=== PATIENT | male | born 1960 | race Caucasian/White ===

== ENCOUNTER → 2018-08-05 | Outpatient (CLI) | payer OTHER ==
[~2018-08-05] MED LIST: AMLO10TA8 PO; FISH OIL PO; LISI-170 PO; MAGNESIUM PO; RIVA20TA PO; SOTA80TA PO; VITAMIN D PO
== END | disposition home or self-care (01) ==
LOC: CFH 14:18
PROVIDERS: ATTEND Internal Medicine Cardiovascular Disease
DX: I08.3 Combined rheumatic disorders of mitral, aortic and tricuspid valves (principal); I48.1 Persistent atrial fibrillation; I10 Essential (primary) hypertension
CPT/HCPCS: 93306

== ENCOUNTER → 2018-09-09 | Outpatient (CLI) | payer OTHER ==
[~2018-09-09] MED LIST changes: +REGADENOSON 0.4 MG/5 ML SYRINGE ONE
== END | disposition home or self-care (01) ==
LOC: CFH 11:54
PROVIDERS: ATTEND Nurse Practitioner Family
DX: I21.19 ST elevation (STEMI) myocardial infarction involving other coronary artery of inferior wall (principal); I48.1 Persistent atrial fibrillation
CPT/HCPCS: 78452; 93017; A9502; J2785

== ENCOUNTER 2018-09-25 11:02 | Inpatient (IN) | payer OTHER ==
[~2018-09-25] VITALS: Ht 190.5 cm; Wt 96.9 kg
[~2018-09-25 11:02] MED LIST changes: -REGADENOSON 0.4 MG/5 ML SYRINGE ONE
[2018-09-25] MEDS ORDERED: DILTIAZEM 5 MG/ML, 5ML IVPush ONE (11:18)
[2018-09-25] MEDS ORDERED: SODIUM CHLORIDE FLUSH 10ML SYR IVF ONE (11:30)
[2018-09-25] MEDS ORDERED: SODIUM CHLORIDE 0.9% 1,000ML IVBOLUS ONE (11:30)
[2018-09-25] MEDS ORDERED: DILTIAZEM 5 MG/ML, 10ML ONE (11:43)
[2018-09-25] MEDS ORDERED: FURO-93 PO (11:52)
[2018-09-25] MEDS ORDERED: AMIO200T42 PO (11:52)
[2018-09-25] MEDS ORDERED: AMLO-150 PO (11:52)
[2018-09-25] MEDS ORDERED: METO25TA35 PO (11:52)
[2018-09-25 11:55] LABS: MEAN CORPUSCULAR HEMOGLOBIN 29.5 pg (27.5-34.5); MEAN CORPUSCULAR HGB CONC 32.9 g/dL (33.2-36.2); MEAN CORPUSCULAR VOLUME 89.7 fL (81-97); MEAN PLATELET VOLUME 8.2 fL (7.4-10.4); PLATELET COUNT 274 x10^3/uL (130-400); RED BLOOD COUNT 5.68 x10^6/uL (4.38-5.82); RED CELL DISTRIBUTION WIDTH 16.4 % (9.4-14.8)
[2018-09-25] MEDS ORDERED: TESTOSTERONE IM (11:58)
[2018-09-25 12:00] LABS: ALBUMIN 3.1 g/dL (3.4-5.0); ANION GAP 7 mmol/L (5-15); CALCIUM 9.5 mg/dL (8.5-10.1); CHLORIDE 98 mmol/L (98-107)
[2018-09-25 12:06] LABS: ALANINE AMINOTRANSFERASE 120 U/L (12-78); ALKALINE PHOSPHATASE 121 U/L (45-117); BILIRUBIN,TOTAL 1.4 mg/dL (0.2-1.0); CREATININE 0.79 mg/dL (0.7-1.3); TOTAL PROTEIN 7.3 g/dL (6.4-8.2)
[2018-09-25 12:10] LABS: TROPONIN I 0.921 ng/mL (0.000-0.045)
[2018-09-25 12:11] LABS: BASOPHILS # (AUTO) 0.05 x10^3/uL (0-0.1); BASOPHILS % (AUTO) 0 % (0-1); EOSINOPHILS # (AUTO) 0.13 x10^3/uL (0-0.4); EOSINOPHILS % (AUTO) 1 % (1-7); LYMPHOCYTES # (AUTO) 1.62 x10^3/uL (1-3.4); LYMPHOCYTES % (AUTO) 10 % (22-44); MD SCAN; MONOCYTES # (AUTO) 1.45 x10^3/uL (0.2-0.8); MONOCYTES % (AUTO) 9 % (2-9); NEUTROPHILS # (AUTO) 13.16 x10^3/uL (1.8-6.8); NEUTROPHILS % (AUTO) 80 % (42-75)
[2018-09-25] MEDS ORDERED: PROPOFOL 10 MG/ML, 20ML ONE (12:38)
--- NOTE | 2018-09-25 12:55 | NUR ---
Pt prepped to cardiovert per MD. Pt NAD at this time. Consent signed, suction and airway equipment at bedside, pt on monitor. Crashcart at bedside.
[2018-09-25] MEDS ORDERED: PROPOFOL 10 MG/ML, 20ML IVP ONE (13:00)
[2018-09-25] MEDS ORDERED: PIPERACILLIN/TAZO/PMX 3.375GM 50 ML IV ONE (13:30)
--- NOTE | 2018-09-25 14:28 | NUR ---
BREAK RN: pt laying on hans awake & comfortable, responds approp to staff, NAD, comfort measures provided, at BS, call light light within reach. Addendum: 09/25/18 at 1431 by CELE BREAK RN: pt upright on hans awake & comfortable, watching TV, responds approp to staff, NAD, comfort measures provided, at BS, call light within reach.
--- NOTE | 2018-09-25 14:40 | NUR ---
Pt to be admitted to [facility], room 505. Report called to Faustina.
[2018-09-25 15:21] VITALS: BP 142/98
[2018-09-25] MEDS ORDERED: GUAIFENESIN/DM 200-20MG, 10ML UDC PO PRN (17:00)
[2018-09-25] MEDS ORDERED: LABETALOL 5MG/ML, 20ML IVPush PRN (17:00)
[2018-09-25] MEDS ORDERED: ACETAMINOPHEN 325 MG TABLET PO PRN (17:00)
[2018-09-25] MEDS ORDERED: ONDANSETRON ODT 4 MG PO PRN (17:00)
[2018-09-25] MEDS ORDERED: hydrALAzine 20 MG/ML, 1ML IVPush PRN (17:00)
[2018-09-25] MEDS ORDERED: OMNIPAQUE 350 MG/ML, 100ML BOTTLE ONE (17:23)
[2018-09-25] MEDS ORDERED: TESTOSTERONE MC SCH (17:30)
[2018-09-25] MEDS: RIVAROXABAN 20 MG TABLET PO SCH (17:41)
[2018-09-25] MEDS: FUROSEMIDE 20 MG TABLET PO SCH (17:43)
[2018-09-25 18:40] LABS: HCT (SEDRATE) 47.1 % (39.2-51.8)
[2018-09-25 18:50] LABS: TROPONIN I 0.905 ng/mL (0.000-0.045)
[2018-09-25 18:56] LABS: FREE T4 (FREE THYROXINE) 1.07 ng/dL (0.76-1.46); THYROID STIMULATING HORMONE 0.801 mIU/L (0.358-3.740)
[2018-09-25 19:19] LABS: HEMOGLOBIN A1C 6.3 % (4.2-6.3)
[2018-09-25 19:44] VITALS: BP 141/99
[2018-09-25] MEDS: PIPERACILLIN/TAZO/PMX 3.375GM 50 ML IV SCH (20:15)
[2018-09-25] MEDS: METOPROLOL TARTRATE 25 MG TABLET PO SCH (20:27)
[2018-09-25] MEDS: FAMOTIDINE 20 MG TABLET PO SCH (20:28)
[2018-09-25] MEDS: AMIODARONE 200 MG TABLET PO SCH (20:28)
[2018-09-25] MEDS ORDERED: AMIODARONE 200 MG TABLET PO SCH (21:00)
[2018-09-25] MEDS ORDERED: ZOLPIDEM 5MG TABLET PO PRN (21:00)
[2018-09-25 23:51] LABS: TROPONIN I 0.944 ng/mL (0.000-0.045)
[2018-09-26] VITALS (7 sets, daily range): BP systolic 132–158; BP diastolic 90–108
[2018-09-26] MEDS: PIPERACILLIN/TAZO/PMX 3.375GM 50 ML IV SCH ×4 (01:35→20:09)
[2018-09-26 05:10] LABS: MEAN CORPUSCULAR HEMOGLOBIN 29.5 pg (27.5-34.5); MEAN CORPUSCULAR HGB CONC 33.1 g/dL (33.2-36.2); MEAN CORPUSCULAR VOLUME 89.3 fL (81-97); MEAN PLATELET VOLUME 7.9 fL (7.4-10.4); PLATELET COUNT 287 x10^3/uL (130-400); RED BLOOD COUNT 5.61 x10^6/uL (4.38-5.82); RED CELL DISTRIBUTION WIDTH 16.5 % (9.4-14.8)
[2018-09-26 05:20] LABS: ANION GAP 7 mmol/L (5-15); CALCIUM 8.8 mg/dL (8.5-10.1); CHLORIDE 104 mmol/L (98-107)
[2018-09-26 05:25] LABS: CHOL/HDL RATIO 5.1; CHOLESTEROL, TOTAL 143 mg/dL (140-239); CREATININE 0.86 mg/dL (0.7-1.3); HDL CHOL % 20 % (26-37); HDL CHOLESTEROL (DIRECT) 28 mg/dL (40-60); LDL CHOLESTEROL,CALCULATED 97 mg/dL (54-169); LDL/HDL RATIO 3.5 (0.5-3.0); TRIGLYCERIDES 92 mg/dL (50-200); VLDL CHOLESTEROL 18 mg/dL (0-25)
[2018-09-26 05:46] LABS: BASOPHILS # (AUTO) 0.03 x10^3/uL (0-0.1); BASOPHILS % (AUTO) 0 % (0-1); EOSINOPHILS # (AUTO) 0.15 x10^3/uL (0-0.4); EOSINOPHILS % (AUTO) 1 % (1-7); LYMPHOCYTES # (AUTO) 1.73 x10^3/uL (1-3.4); LYMPHOCYTES % (AUTO) 11 % (22-44); MD SCAN; MONOCYTES # (AUTO) 1.29 x10^3/uL (0.2-0.8); MONOCYTES % (AUTO) 8 % (2-9); NEUTROPHILS # (AUTO) 12.31 x10^3/uL (1.8-6.8); NEUTROPHILS % (AUTO) 79 % (42-75)
[2018-09-26] MEDS ORDERED: RIVAROXABAN 20 MG TABLET PO SCH (06:00)
[2018-09-26] MEDS: FAMOTIDINE 20 MG TABLET PO SCH ×2 (08:45→20:10)
[2018-09-26] MEDS: AMLODIPINE 5 MG TABLET PO SCH (08:45)
[2018-09-26] MEDS: FUROSEMIDE 20 MG TABLET PO SCH ×2 (08:45→20:11)
[2018-09-26] MEDS: AMIODARONE 200 MG TABLET PO SCH ×2 (08:45→20:10)
[2018-09-26] MEDS: METOPROLOL TARTRATE 25 MG TABLET PO SCH ×2 (08:45→20:10)
[2018-09-26] MEDS: RIVAROXABAN 20 MG TABLET PO SCH (17:42)
[2018-09-27 00:31] VITALS: BP 156/92
[2018-09-27] MEDS: PIPERACILLIN/TAZO/PMX 3.375GM 50 ML IV SCH ×2 (01:34→07:14)
[2018-09-27 05:38] LABS: BASOPHILS # (AUTO) 0.03 x10^3/uL (0-0.1); BASOPHILS % (AUTO) 0 % (0-1); EOSINOPHILS # (AUTO) 0.25 x10^3/uL (0-0.4); EOSINOPHILS % (AUTO) 2 % (1-7); LYMPHOCYTES # (AUTO) 1.88 x10^3/uL (1-3.4); LYMPHOCYTES % (AUTO) 13 % (22-44); MD NO; MEAN CORPUSCULAR HEMOGLOBIN 30.1 pg (27.5-34.5); MEAN CORPUSCULAR HGB CONC 33.2 g/dL (33.2-36.2); MEAN CORPUSCULAR VOLUME 90.6 fL (81-97); MEAN PLATELET VOLUME 7.9 fL (7.4-10.4); MONOCYTES # (AUTO) 1.16 x10^3/uL (0.2-0.8); MONOCYTES % (AUTO) 8 % (2-9); NEUTROPHILS # (AUTO) 10.97 x10^3/uL (1.8-6.8); NEUTROPHILS % (AUTO) 77 % (42-75); PLATELET COUNT 300 x10^3/uL (130-400); RED BLOOD COUNT 5.45 x10^6/uL (4.38-5.82); RED CELL DISTRIBUTION WIDTH 16.9 % (9.4-14.8)
[2018-09-27 05:47] LABS: ANION GAP 6 mmol/L (5-15); CALCIUM 8.4 mg/dL (8.5-10.1); CHLORIDE 104 mmol/L (98-107)
[2018-09-27 07:05] VITALS: BP 155/98
[2018-09-27] MEDS: FUROSEMIDE 20 MG TABLET PO SCH (07:14)
[2018-09-27] MEDS: METOPROLOL TARTRATE 25 MG TABLET PO SCH (07:15)
[2018-09-27] MEDS: FAMOTIDINE 20 MG TABLET PO SCH (07:15)
[2018-09-27] MEDS: AMIODARONE 200 MG TABLET PO SCH (07:15)
[2018-09-27] MEDS: AMLODIPINE 5 MG TABLET PO SCH (07:15)
[2018-09-27] MEDS ORDERED: AMOX1TAB64 PO (12:17)
[2018-09-27 13:54] VITALS: BP 136/83
== END 2018-09-27 14:58 | disposition home or self-care (01) | DRG 871 ==
LOC: ED 12:19 → EDIP 13:37 → 5SO 14:54 → DCLOUNGE 09-27 14:38
PROVIDERS: ADMIT Internal Medicine; ATTEND Internal Medicine
PROC: 5A2204Z Restoration of Cardiac Rhythm, Single (ICD-10-PCS; principal; 2018-09-25)
DX: A41.9 Sepsis, unspecified organism (principal); I26.99 Other pulmonary embolism without acute cor pulmonale; J15.9 Unspecified bacterial pneumonia; I46.9 Cardiac arrest, cause unspecified; D68.69 Other thrombophilia; E87.1 Hypo-osmolality and hyponatremia; I48.92 Unspecified atrial flutter; I48.1 Persistent atrial fibrillation; I10 Essential (primary) hypertension; G47.33 Obstructive sleep apnea (adult) (pediatric); Z82.49 Family history of ischemic heart disease and other diseases of the circulatory system; Z83.3 Family history of diabetes mellitus; Z87.891 Personal history of nicotine dependence
CPT/HCPCS: 36415; 71045; 71275; 80048; 80053; 80061; 80074; 83036; 83605; 83735; 83880; 84145; 84439; 84443; 84484; 85025; 85651; 87040; 92960; 93005; 93306; 96374; 96375; 99291; G0378; J2543; Q9967; J0360; J7030

== ENCOUNTER 2018-10-17 08:21 | Day surgery (SDC) | payer OTHER ==
[~2018-10-17] VITALS: Ht 190.5 cm; Wt 102.3 kg
[~2018-10-17 08:21] MED LIST changes: +AMIO200T42 PO; +AMLO-150 PO; +AMOX1TAB64 PO; +FURO-93 PO; +METO25TA35 PO; +TESTOSTERONE IM
[2018-10-17] MEDS ORDERED: FURO20TA3 PO (08:52)
[2018-10-17] MEDS ORDERED: CHRO200T2 PO (08:52)
[2018-10-17] MEDS ORDERED: POTA20TA6 PO (08:52)
[2018-10-17] MEDS ORDERED: TRAM100C3 PO (08:52)
[2018-10-17] MEDS ORDERED: CHOL5000 PO (08:52)
[2018-10-17] MEDS ORDERED: OMEG1CAP23 PO (08:52)
[2018-10-17] MEDS ORDERED: UBID100C41 PO (08:52)
[2018-10-17] MEDS ORDERED: MAGN400T36 PO (08:52)
[2018-10-17 09:28] VITALS: BP 126/102
[2018-10-17 09:34] LABS: BASOPHILS # (AUTO) 0.04 x10^3/uL (0-0.1); BASOPHILS % (AUTO) 0 % (0-1); EOSINOPHILS # (AUTO) 0.22 x10^3/uL (0-0.4); EOSINOPHILS % (AUTO) 2 % (1-7); LYMPHOCYTES # (AUTO) 1.45 x10^3/uL (1-3.4); LYMPHOCYTES % (AUTO) 10 % (22-44); MD NO; MEAN CORPUSCULAR HEMOGLOBIN 28.2 pg (27.5-34.5); MEAN CORPUSCULAR HGB CONC 32.6 g/dL (33.2-36.2); MEAN CORPUSCULAR VOLUME 86.6 fL (81-97); MEAN PLATELET VOLUME 7.6 fL (7.4-10.4); MONOCYTES # (AUTO) 1.11 x10^3/uL (0.2-0.8); MONOCYTES % (AUTO) 8 % (2-9); NEUTROPHILS % (AUTO) 80 % (42-75); PLATELET COUNT 356 x10^3/uL (130-400); RED BLOOD COUNT 5.53 x10^6/uL (4.38-5.82); RED CELL DISTRIBUTION WIDTH 17.1 % (9.4-14.8)
[2018-10-17 09:39] LABS: ANION GAP 5 mmol/L (5-15); CALCIUM 8.6 mg/dL (8.5-10.1); CHLORIDE 103 mmol/L (98-107); CREATININE 0.94 mg/dL (0.7-1.3)
[2018-10-17] MEDS ORDERED: PROPOFOL 10 MG/ML, 20ML ONE (15:23)
== END 2018-10-17 12:59 | disposition home or self-care (01) ==
LOC: CACL 08:21
PROVIDERS: ATTEND Internal Medicine Cardiovascular Disease
DX: I48.91 Unspecified atrial fibrillation (principal)
CPT/HCPCS: 36415; 71046; 80048; 85025; 92960; 93005; J2704

== ENCOUNTER 2018-11-04 06:30 | Observation (INO) | payer OTHER ==
[2018-10-31 09:48] VITALS: BP 126/82
[2018-10-31 09:52] LABS: BASOPHILS % (AUTO) 0 % (0-1); EOSINOPHILS % (AUTO) 1 % (1-7); LYMPHOCYTES # (AUTO) 1.44 x10^3/uL (1-3.4); LYMPHOCYTES % (AUTO) 13 % (22-44); MD NO; MEAN CORPUSCULAR HEMOGLOBIN 27.4 pg (27.5-34.5); MEAN CORPUSCULAR HGB CONC 32.6 g/dL (33.2-36.2); MEAN CORPUSCULAR VOLUME 84.2 fL (81-97); MEAN PLATELET VOLUME 7.6 fL (7.4-10.4); MONOCYTES # (AUTO) 0.89 x10^3/uL (0.2-0.8); MONOCYTES % (AUTO) 8 % (2-9); NEUTROPHILS # (AUTO) 8.73 x10^3/uL (1.8-6.8); NEUTROPHILS % (AUTO) 78 % (42-75); PLATELET COUNT 369 x10^3/uL (130-400); RED CELL DISTRIBUTION WIDTH 17.7 % (9.4-14.8)
[2018-10-31 10:04] LABS: ANION GAP 3 mmol/L (5-15); CALCIUM 8.5 mg/dL (8.5-10.1); CHLORIDE 105 mmol/L (98-107); CREATININE 1.07 mg/dL (0.7-1.3)
[~2018-11-04] VITALS: Ht 190.5 cm; Wt 107.0 kg
[~2018-11-04 06:30] MED LIST changes: +CHOL5000 PO; +CHRO200T2 PO; +FURO20TA3 PO; +MAGN400T36 PO; +OMEG1CAP23 PO; +POTA20TA6 PO; +TRAM100C3 PO; +UBID100C41 PO
[2018-11-04] MEDS ORDERED: SODIUM CHLORIDE 0.9% 1,000 ML IV SCH (06:39)
[2018-11-04] MEDS ORDERED: FURO-92 PO (07:00)
[2018-11-04] MEDS ORDERED: UBID100C41 PO (07:00)
[2018-11-04] MEDS ORDERED: RIVA20TA PO (07:00)
[2018-11-04] MEDS ORDERED: TRAM50TA2 PO (07:00)
[2018-11-04] MEDS ORDERED: CHRO200T2 PO (07:00)
[2018-11-04] MEDS ORDERED: CHOL5000 PO (07:00)
[2018-11-04] MEDS ORDERED: POTA20TA14 PO (07:00)
[2018-11-04] MEDS ORDERED: OMEG1CAP23 PO (07:00)
[2018-11-04] MEDS ORDERED: MAGN500T PO (07:00)
[2018-11-04] MEDS ORDERED: MIDAZOLAM 1 MG/ML, 2ML ONE (08:13)
[2018-11-04] MEDS ORDERED: FENTANYL PF 250 MCG/5ML ONE (08:14)
[2018-11-04] MEDS ORDERED: PHENYLEPHRINE 10 MG/ML ONE (08:25)
[2018-11-04] MEDS ORDERED: LIDOCAINE 2%, 20ML ONE (08:27)
[2018-11-04] MEDS ORDERED: ISOPROTERENOL 0.2MG/ML, 5ML ONE (08:27)
[2018-11-04] MEDS ORDERED: PROTAMINE SULFATE 10 MG/ML, 5ML ONE (08:27)
[2018-11-04] MEDS ORDERED: HEPARIN 1,000 UNITS/ML, 10ML ONE ×2 (09:11)
[2018-11-04] MEDS ORDERED: SUCCINYLCHOLINE 20 MG/ML, 10ML ONE (09:21)
[2018-11-04] MEDS ORDERED: ROCURONIUM 10MG/ML,5ML ONE (09:21)
[2018-11-04] MEDS ORDERED: DEXAMETHASONE 4 MG/ML, 1ML ONE (09:22)
[2018-11-04] MEDS ORDERED: PROPOFOL 10 MG/ML, 20ML ONE (09:22)
[2018-11-04] MEDS ORDERED: ONDANSETRON 2MG/ML, 2ML ONE (09:22)
[2018-11-04] MEDS ORDERED: VASOPRESSIN 20 UNIT/ML, 1ML ONE (09:22)
[2018-11-04] MEDS ORDERED: EPHEDRINE 50 MG/ML, 1ML IVPush PRN (10:30)
[2018-11-04] MEDS ORDERED: MORPHINE SULFATE 4 MG/ML, 1ML IVPush PRN (10:30)
[2018-11-04] MEDS ORDERED: DIAZEPAM 5 MG/ML, 2ML IVPush PRN (10:30)
[2018-11-04] MEDS ORDERED: ONDANSETRON ODT 8 MG PO PRN (10:30)
[2018-11-04] MEDS ORDERED: PROMETHAZINE 25 MG/ML, 1ML IV PRN (10:30)
[2018-11-04] MEDS ORDERED: ONDANSETRON 2MG/ML, 2ML IV PRN (10:30)
[2018-11-04] MEDS ORDERED: hydrALAzine 20 MG/ML, 1ML IV PRN (10:30)
[2018-11-04] MEDS ORDERED: TESTOSTERONE 50 MG IM SCH (10:30)
[2018-11-04] MEDS ORDERED: ACETAMINOPHEN 325 MG TABLET PO PRN ×2 (10:30)
[2018-11-04] MEDS ORDERED: FENTANYL PF 100 MCG/2ML IV PRN (10:30)
[2018-11-04] MEDS ORDERED: MEPERIDINE/PF 25MG/0.5ML IVPush PRN (10:30)
[2018-11-04] MEDS ORDERED: DIPHENHYDRAMINE 50 MG/ML, 1ML IVPush PRN (10:30)
[2018-11-04] MEDS ORDERED: OXYcodone 5 MG/5 ML ORAL.SOL UDC PO PRN (10:30)
[2018-11-04] MEDS: RIVAROXABAN 20 MG TABLET PO SCH (11:26)
[2018-11-04 12:24] VITALS: BP 128/80
[2018-11-04 13:44] VITALS: BP 128/80
[2018-11-04] MEDS ORDERED: AMIODARONE 200 MG TABLET PO ONE (18:30)
[2018-11-04 20:01] VITALS: BP 134/68
[2018-11-04] MEDS: METOPROLOL TARTRATE 25 MG TABLET PO SCH (20:50)
[2018-11-04] MEDS: MAGNESIUM OXIDE 400 MG TABLET PO SCH (20:50)
[2018-11-04] MEDS ORDERED: AMLODIPINE 5 MG TABLET PO SCH (21:00)
[2018-11-05 00:37] VITALS: BP 123/74
[2018-11-05] MEDS ORDERED: RIVAROXABAN 20 MG TABLET PO SCH (07:00)
[2018-11-05 07:45] VITALS: BP 135/84
[2018-11-05] MEDS: RIVAROXABAN 20 MG TABLET PO SCH (08:18)
[2018-11-05] MEDS: METOPROLOL TARTRATE 25 MG TABLET PO SCH (08:18)
[2018-11-05] MEDS: MAGNESIUM OXIDE 400 MG TABLET PO SCH (08:18)
[2018-11-05] MEDS ORDERED: OMEGA-3/FISH OIL CAPSULE PO SCH (09:00)
[2018-11-05] MEDS ORDERED: AMIODARONE 200 MG TABLET PO SCH (09:00)
[2018-11-05] MEDS ORDERED: CHOLECALCIFEROL 1,000 UNIT TABLET PO SCH (09:00)
[2018-11-05] MEDS ORDERED: TEMPLATE NON-FORMULARY MED. (Ubidecarenone** (Co Q-10**) 100 MG) PO SCH (09:00)
[2018-11-05] MEDS ORDERED: POTASSIUM CHLORIDE 20 MEQ TAB.ER.PRT PO SCH (09:00)
[2018-11-05] MEDS ORDERED: FUROSEMIDE 40 MG TABLET PO SCH (09:00)
[2018-11-05] MEDS ORDERED: AMLODIPINE 5 MG TABLET PO SCH (09:00)
[2018-11-05] MEDS ORDERED: CHROMIUM PICOLINATE 200 MCG PO SCH (09:00)
== END 2018-11-05 11:37 | disposition home or self-care (01) ==
LOC: CACL 06:30 → EDSTATUS 08:00 → ORIP 10:09 → 5SO 12:17 → DCLOUNGE 11-05 11:25
PROVIDERS: ADMIT Internal Medicine Cardiovascular Disease; ATTEND Internal Medicine Cardiovascular Disease
DX: I48.1 Persistent atrial fibrillation (principal); I48.92 Unspecified atrial flutter; J90 Pleural effusion, not elsewhere classified; Z79.899 Other long term (current) drug therapy
CPT/HCPCS: 36415; 71046; 80048; 85025; 85347; 93005; 93308; 93321; 93325; 93613; 93655; 93656; 93657; 93662; C1730; C1732; C1759; C1766; C1893; C1894; G0378; J0330; J1100; J1644; J2250; J2370; J2405; J2704; J3010; J3490; J2720

== ENCOUNTER 2019-10-15 12:05 | Outpatient (CLI) | payer OTHER ==
[~2019-10-15 12:05] MED LIST changes: +FURO-92 PO; +MAGN500T PO; +POTA20TA14 PO; +REGADENOSON 0.4 MG/5 ML SYRINGE ONE; +TRAM50TA2 PO
== END 2019-10-15 23:59 | disposition home or self-care (01) ==
LOC: CFH 12:05
PROVIDERS: ATTEND Nurse Practitioner Family
DX: I25.9 Chronic ischemic heart disease, unspecified (principal); R94.31 Abnormal electrocardiogram [ECG] [EKG]; I10 Essential (primary) hypertension
CPT/HCPCS: 78452; 93017; A9502; J2785

== ENCOUNTER 2019-11-10 09:01 | Day surgery (SDC) | payer OTHER ==
[~2019-11-10] VITALS: Ht 190.5 cm; Wt 100.0 kg
[~2019-11-10 09:01] MED LIST changes: -REGADENOSON 0.4 MG/5 ML SYRINGE ONE
[2019-11-10] MEDS ORDERED: SODIUM CHLORIDE 0.9% 1,000 ML IV SCH ×2 (09:38→14:27)
[2019-11-10 09:42] VITALS: BP 123/80
[2019-11-10] MEDS ORDERED: METO50TA82 PO (09:56)
[2019-11-10] MEDS ORDERED: SPIR25TA5 PO (09:56)
[2019-11-10] MEDS ORDERED: TEST200V3 IM (09:56)
[2019-11-10] MEDS ORDERED: MULT-658 PO (09:56)
[2019-11-10 10:26] LABS: BASOPHILS # (AUTO) 0.03 x10^3/uL (0-0.1); BASOPHILS % (AUTO) 0 % (0-1); EOSINOPHILS # (AUTO) 0.14 x10^3/uL (0-0.4); EOSINOPHILS % (AUTO) 2 % (1-7); LYMPHOCYTES # (AUTO) 1.63 x10^3/uL (1-3.4); LYMPHOCYTES % (AUTO) 19 % (22-44); MD NO; MEAN CORPUSCULAR HEMOGLOBIN 26.1 pg (27.5-34.5); MEAN CORPUSCULAR HGB CONC 31.5 g/dL (33.2-36.2); MEAN CORPUSCULAR VOLUME 82.9 fL (81-97); MEAN PLATELET VOLUME 7.7 fL (7.4-10.4); MONOCYTES # (AUTO) 0.67 x10^3/uL (0.2-0.8); MONOCYTES % (AUTO) 8 % (2-9); NEUTROPHILS # (AUTO) 5.97 x10^3/uL (1.8-6.8); NEUTROPHILS % (AUTO) 71 % (42-75); PLATELET COUNT 241 x10^3/uL (130-400); RED BLOOD COUNT 6.61 x10^6/uL (4.38-5.82); RED CELL DISTRIBUTION WIDTH 16.5 % (9.4-14.8)
[2019-11-10 10:33] LABS: ANION GAP 5 mmol/L (5-15); CALCIUM 8.9 mg/dL (8.5-10.1); CHLORIDE 105 mmol/L (98-107)
[2019-11-10 10:34] LABS: CREATININE 0.96 mg/dL (0.7-1.3)
[2019-11-10] MEDS ORDERED: FENTANYL PF 100 MCG/2ML ONE (13:39)
[2019-11-10] MEDS ORDERED: MIDAZOLAM 1 MG/ML, 2ML ONE (13:39)
[2019-11-10] MEDS ORDERED: VERAPAMIL 2.5 MG/ML, 2ML ONE (13:40)
[2019-11-10] MEDS ORDERED: HEPARIN 1,000 UNITS/ML, 10ML ONE (13:40)
[2019-11-10] MEDS ORDERED: LIDOCAINE-MPF 1%, 5ML ONE (13:40)
== END 2019-11-10 15:55 | disposition home or self-care (01) ==
LOC: CACL 09:01
PROVIDERS: ATTEND Internal Medicine Cardiovascular Disease
DX: R94.31 Abnormal electrocardiogram [ECG] [EKG] (principal); I48.19 Other persistent atrial fibrillation; Z79.899 Other long term (current) drug therapy
CPT/HCPCS: 36415; 71046; 80048; 85025; 93458; 99156; C1769; C1894; J1644; J2250; J3010; Q9967

== ENCOUNTER → 2020-09-30 | Outpatient (CLI) | payer OTHER ==
[~2020-09-30] MED LIST changes: +AMLO-211 PO; -AMLO10TA8 PO; +CHRO200T10 PO; -CHRO200T2 PO; +METO50TA82 PO; +MULT-658 PO; +OMNIPAQUE 350 MG/ML, 75ML BOTTLE ONE; +SPIR25TA5 PO; +TEST200V3 IM
== END | disposition home or self-care (01) ==
LOC: CFH 09:59
PROVIDERS: ATTEND Internal Medicine Cardiovascular Disease
DX: I48.19 Other persistent atrial fibrillation (principal); R06.02 Shortness of breath
CPT/HCPCS: 71260; 82565; Q9967